=== PATIENT | male | born 1990 | race Hispanic/Latino ===

== ENCOUNTER 2016-08-10 18:34 | Emergency (ER) | payer OTHER ==
[~2016-08-10] VITALS: Ht 167.6 cm; Wt 77.1 kg
--- NOTE | 2016-08-10 18:49 | ED UPPER/LOWER EXTREMITY COMPL ---
History of Present Illness General Chief Complaint: General Adult Stated Complaint: PT DISLOCATED HIS LEFT SHOULDER Source: patient, old records Exam Limitations: no limitations Allergies Coded Allergies: No Known Allergies (08/10/16) Reconcile Medications No Known Home Medications Triage Note: RECEIVED 26 YO MALE S/P FALL INJURING LEFT SHOULDER, + DEFORMITY. PT WITH HYX OF DISLOCATED LEFT SHOULDER, STATES IT IS DISCLOCATED. PT REPORTS SEVERE PAIN Triage Nurses Notes Reviewed? yes Onset: Abrupt Duration: hour(s): (1), constant Timing: recent history Severity: moderate, severe Severity Numbers: 7 Pain/Injury Location: Left: Shoulder. Method of Injury: fall Modifying Factors: Improves With: rest. Worsens With: movement. Associated Symptoms: none HPI: 26-year-old male with history of previous left shoulder dislocation requiring surgery in 2006 presents to emergency room today for evaluation status post mechanical fall sustaining what he believes to be a dislocated left shoulder. He denies head strike no loss of consciousness per patient he denies any neck or back pain. Patient is right-hand dominant. He denies any elbow wrist or hand injury no abdominal pain or leg pain. Pain is aching throbbing worse with attempted range of motion palpation is not taken anything for his symptoms there is no prodromal dizziness or lightheadedness prior to his fall (FARAZ DIAZ) Vital Signs & Intake/Output Vital Signs & Intake/Output Vital Signs Date Time Temp Pulse Resp B/P Pulse O2 O2 Flow FiO2 Ox Delivery Rate 08/10 2120 98.0 78 16 118/66 96 Room Air 08/10 2002 75 16 119/68 100 Nasal 2.0L Cannula 08/10 191 Room Air 08/10 1840 98.4 98 18 120/76 96 Room Air Past History Travel History Traveled to [place] past 21 day No Medical History Any Pertinent Medical History? none Neurological: NONE EENT: NONE Cardiovascular: NONE Respiratory: NONE Gastrointestinal: NONE Hepatic: NONE Renal: NONE Musculoskeletal: NONE Psychiatric: NONE Endocrine: NONE Blood Disorders: NONE Cancer(s): NONE Surgical History Surgical History: none Psychosocial History What is your primary language Vincentian Tobacco Use: Never used Family History Hx Contributory? No (FARAZ DIAZ) Review of Systems Review of Systems Constitutional: Reports: see HPI. All Other Systems: Reviewed and Negative Comments Review of systems: See HPI, All other systems negative. Constitutional, no chills no fever, no malaise HEENT: no sore throat no congestion Cardiovascular: No chest pain , no palpitation Skin, no rashes, no change in skin Respiratory: No dyspnea no cough no sputum GI: No nausea no vomiting, no diarrhea : No dysuria No hematuria, no frequency Muscle skeletal: joint pain, no joint swelling, no back pain, no neck pain, Neurologic: No numbness no headache Psych: No stress Heme/endocrine: No bruising no bleeding Immunology: No lymphadenopathy (JACQUE BENITEZ,FARAZ) Physical Exam Physical Exam General Appearance: well developed/nourished, alert, awake, mild distress, moderate distress Comments: Well-developed well-nourished patient in no apparent distress. HEENT: Atraumatic, extraocular motion intact Neck: Supple, FROM, no lymphadenopathy Back: FROM, Nontender Cardiovascular: Regular rate and rhythms no murmurs rubs or gallops, Respiratory: Chest nontender.There were no bony deformities, no asymmetry. No respiratory distress. Patient speaking in full complete sentences. Breath sounds clear to auscultation bilaterally: NO W/R/R Shoulder: deformity with limited range of motion of the left shoulder, skin is intact, no clavicular tenderness Elbow: Atraumatic/stable. FROM. No laxity Upper arm/Forearm: Atraumatic. Nontender. No edema, 5 out of 5 enrober strength noted to bilateral upper extremities Hand/Wrist: Atraumatic/stable. Skin intact. FROM Pulses: Normal/equal radial pulses bilaterally. Brisk cap refill Lower Extremities: full range of motion Neuro: Alert and oriented x3 Skin: Warm & dry;No appreciable rash on exposed skin Psych: Mood affect normal, normal memory normal judgment. (JACQUE BENITEZ,FARAZ) Progress Differential Diagnosis: compartment syndrome, contusion, dislocation, fracture, sprain, tendon injury Diagnostic Imaging: Viewed by Me: Radiology Read. Discussed w/RAD: Radiology Read. Radiology Impression: PATIENT: JUANITA CONSTANTINO PRESENT AGE: 26 PATIENT ACCOUNT NO: [id number] : 91 LOCATION: [facility] ORDERING PHYSICIAN: FARAZ BENITEZ SERVICE DATE: 08/10/16 EXAM TYPE: RAD - XRY-SHOULDER COMPLETE-LEFT EXAMINATION: SHOULDER 3 VIEWS, LEFT CLINICAL INFORMATION: Left shoulder dislocation. COMPARISON: None. TECHNIQUE: AP views of the left shoulder were obtained in internal and external rotation. In addition, a Y view was obtained. FINDINGS: There is anterior dislocation of the left humeral head. No fractures demonstrable. The AC joint is intact. IMPRESSION: Anterior left humeral head dislocation. DICTATED BY: DOUGLAS ABARCA MD DATE/TIME DICTATED:08/10/161921 PRESSURE SEALER AND TESTER:ROSIE DATE/TIME TRANSCRIBED:1921 CONFIDENTIAL, DO NOT COPY WITHOUT APPROPRIATE AUTHORIZATION. < Electronically signed in Other Vendor System> SIGNED BY: DOUGLAS ABARCA MD 08/10/161925, PATIENT: JUANITA CONSTANTINO PRESENT AGE: 26 PATIENT ACCOUNT NO: [id number] : 91 LOCATION: [facility] ORDERING PHYSICIAN: FARAZ BENITEZ SERVICE DATE: 08/10/16 EXAM TYPE: RAD - XRY-SHOULDER COMPLETE-LEFT EXAMINATION: SHOULDER 3 VIEWS, LEFT CLINICAL INFORMATION: Left shoulder dislocation status post reduction. COMPARISON: Same day left shoulder radiographs. TECHNIQUE: AP views of the left shoulder were obtained in internal and external rotation. In addition, a Y view was obtained. FINDINGS: There has been interval reduction of the dislocated left shoulder. The left AC joint is intact. There are no discernible fractures.. IMPRESSION: Interval reduction of previously dislocated left shoulder. DICTATED BY: DOUGLAS ABARCA MD DATE/TIME DICTATED:08/10/162104 PRESSURE SEALER AND TESTER:ROSIE DATE/TIME TRANSCRIBED:2104 CONFIDENTIAL, DO NOT COPY WITHOUT APPROPRIATE AUTHORIZATION. < Electronically signed in Other Vendor System> SIGNED BY: DOUGLAS ABARCA MD 08/10/162108 (JACQUE BENITEZ,FARAZ) Plan of Care: Orders Procedure Date/time Status Durable Medical Equipment 08/10 2005 Active Current Medications Sig/Justice Start time Last Medication Dose Stop Time Status Admin Hydromorphone HCl 1 MG ONCE ONE 08/10 1899 CAN (Dilaudid) 08/10 1900 I discussed with patient his x-ray results he is again declining any narcotics or stronger medication other than Toradol 30 IV which was given see any need to drive home After verbal consent was obtained, conscious sedation was performed by myself using etomidate 10 milligrams IV, the shoulder is reduced with the help of Dr. Hines, post reduction film was ordered pt was neurovasc intact prior to and after applicaton of sling 08/10/2016 9:18:12 PM discussed with the patient his repeat x-ray results he is feeling improved. Advise close follow-up with orthopedist if needed, return with any concerns she feels couple plan (FARAZ DIAZ) Comments: I was present during the production of this patient's shoulder dislocation. (JOSÉ MIGUEL HAQUE,STU Kapoor) Departure Departure Disposition: HOME OR SELF CARE Condition: Stable Clinical Impression Primary Impression: Shoulder dislocation Referrals: TED HAQUE,ELOINA MOE MD,ALDA Additional Instructions: rest, ice, tylenol or motrin if needed. shoulder sling as discussed. follow up with dr moe orthopedist next week or return to the ER with any concerns Departure Forms: Customer Survey General Discharge Information Prescriptions: Current Visit Scripts No Known Home Medications (FARAZ DIAZ) PA/PORTAL ARCHITECT Co-Sign Statement Statement: ED Attending supervision documentation- [X] I saw and evaluated the patient. I have also reviewed all the pertinent lab results and diagnostic results. I agree with the findings and the plan of care as documented in the PA's/PORTAL ARCHITECT's documentation. [] I have reviewed the ED Record and agree with the PA's/PORTAL ARCHITECT's documentation. [] Additions or exceptions (if any) to the PAs/PORTAL ARCHITECT's note and plan are summarized below: [] (JOSÉ MIGUEL HAQUE,STU Kapoor) Procedures Joint Reduction Joint Reduction Site: shoulder (L) Conscious Sedation: conscious sedation, performed by me Reduction Attempts: 1 Pre-Procedure NV Exam: Yes Post-Procedure NV Exam: Yes Post Joint Reduction Film: joint reduced Procedural Sedation Sedation Type: moderate Indication: shoulder reduction Prior Complications: procedural sedation ASA Classification: E Airway: normal anatomy Mallampati Classification: Class 1 Preparation: plan explained to patient, hospital consent signed, oximetry during procedure, capnometry during procedu, IV access obtained, suction immediately avail, home service demonstrator used Sedation: etomidate Complications During/After Procedure: none Post Sedation Score: see sedation record I personally performed: sedation Intra-Service Time: 30 minutes or less (FARAZ DIAZ)
--- NOTE | 2016-08-10 19:26 | RADIOLOGY REPORT ---
EXAMINATION: SHOULDER 3 VIEWS, LEFT CLINICAL INFORMATION: Left shoulder dislocation. COMPARISON: None. TECHNIQUE: AP views of the left shoulder were obtained in internal and external rotation. In addition, a Y view was obtained. FINDINGS: There is anterior dislocation of the left humeral head. No fractures demonstrable. The AC joint is intact. IMPRESSION: Anterior left humeral head dislocation.
--- NOTE | 2016-08-10 21:09 | RADIOLOGY REPORT ---
EXAMINATION: SHOULDER 3 VIEWS, LEFT CLINICAL INFORMATION: Left shoulder dislocation status post reduction. COMPARISON: Same day left shoulder radiographs. TECHNIQUE: AP views of the left shoulder were obtained in internal and external rotation. In addition, a Y view was obtained. FINDINGS: There has been interval reduction of the dislocated left shoulder. The left AC joint is intact. There are no discernible fractures.. IMPRESSION: Interval reduction of previously dislocated left shoulder.
[2016-08-10 21:21] VITALS: BP 118/66
== END 2016-08-10 21:24 ==
LOC: ERH 18:34
DX: S43.005A Unspecified dislocation of left shoulder joint, initial encounter (principal); W19.XXXA Unspecified fall, initial encounter; Y93.9 Activity, unspecified; Y92.9 Unspecified place or not applicable
CPT/HCPCS: 73030-LT; 96374; 96375; J1885; J3360